=== PATIENT | male | born 1990 | race African-American/Black ===

== ENCOUNTER 2018-08-30 19:04 | Emergency (ER) | payer SELFPAY ==
[~2018-08-30] VITALS: Ht 198.1 cm; Wt 82.0 kg
[~2018-08-30 19:04] MED LIST: AUGMENTIN500TAB PO; INTUNIV2 MG OR; NAPROSYN500 MG PO
[2018-08-30 19:57] LABS: INFLUENZA B NONE DETECTED (NONE DETECT)
[2018-08-30 21:02] VITALS: BP 117/65
== END 2018-08-30 21:07 | disposition home or self-care (01) | DRG 866 ==
LOC: ED 19:04
PROVIDERS: Emergency Medicine
DX: B34.9 Viral infection, unspecified (principal); H92.09 Otalgia, unspecified ear; R51 Headache; R09.81 Nasal congestion; F17.210 Nicotine dependence, cigarettes, uncomplicated

== ENCOUNTER 2018-11-23 00:17 | Emergency (ER) | payer SELFPAY ==
[~2018-11-23] VITALS: Ht 198.1 cm; Wt 77.0 kg
[2018-11-23] MEDS ORDERED: TORADOL PO (01:24)
[2018-11-23 01:30] VITALS: BP 138/72
== END 2018-11-23 01:33 | disposition home or self-care (01) | DRG 605 ==
LOC: ED 00:17
DX: S60.221A Contusion of right hand, initial encounter (principal); J06.9 Acute upper respiratory infection, unspecified; S60.511A Abrasion of right hand, initial encounter; W22.09XA Striking against other stationary object, initial encounter; Y92.009 Unspecified place in unspecified non-institutional (private) residence as the place of occurrence of the external cause; F17.210 Nicotine dependence, cigarettes, uncomplicated; R05 Cough

== ENCOUNTER 2018-11-25 17:13 | Emergency (ER) | payer SELFPAY ==
[~2018-11-25] VITALS: Ht 198.1 cm; Wt 80.0 kg
[~2018-11-25 17:13] MED LIST changes: +TORADOL PO
[2018-11-25] MEDS ORDERED: AUGMENTIN875TAB PO (17:35)
[2018-11-25 18:55] VITALS: BP 129/74
== END 2018-11-25 18:55 | disposition home or self-care (01) | DRG 605 ==
LOC: ED 17:13
DX: S81.052A Open bite, left knee, initial encounter (principal); S61.452A Open bite of left hand, initial encounter; W54.0XXA Bitten by dog, initial encounter; Y93.01 Activity, walking, marching and hiking; Y92.414 Local residential or business street as the place of occurrence of the external cause; Z29.14 Encounter for prophylactic rabies immune globulin